=== PATIENT | male | born 1955 | race Caucasian/White ===

== ENCOUNTER 2021-08-21 05:20 | Emergency (ER) | payer OTHER | END 2021-08-21 08:18 | disposition home or self-care (01) | LOC: ER1 05:20 | DX: U07.1 COVID-19 (principal); K21.9 Gastro-esophageal reflux disease without esophagitis; E78.5 Hyperlipidemia, unspecified | CPT/HCPCS: 99283 ==

== ENCOUNTER 2022-04-18 16:51 | Emergency (ER) | payer OTHER ==
[2022-04-18 18:12] LABS: HEMOGLOBIN 18.7 gm/dl (14.0-17.5); RED BLOOD COUNT 5.89 M/UL (4.20-5.50); WHITE BLOOD COUNT 8.3 K/UL (4.5-11.0)
== END 2022-04-18 19:28 | disposition home or self-care (01) ==
LOC: ER1 16:51
PROVIDERS: Preventive Medicine Occupational Medicine
DX: I47.1 Supraventricular tachycardia (principal)
CPT/HCPCS: 71045; 80053; 82550; 82553; 84484; 85025; 93005; 99285

== ENCOUNTER → 2022-05-06 | Outpatient (CLI) | payer OTHER | LOC: ECHO 09:45 | DX: R00.2 Palpitations (principal); R00.0 Tachycardia, unspecified; I07.1 Rheumatic tricuspid insufficiency | CPT/HCPCS: ECHO; 93306 ==

== ENCOUNTER → 2022-05-14 | Outpatient (CLI) | payer OTHER ==
[~2022-05-14] MED LIST: CITALOPRAM HBR20 MG PO; METHIMAZOLE5 MG PO; MYRBETRIQ25 MG PO; OMEPRAZOLE40 MG PO; TRAZODONE HCL150 MG PO; ZOCOR 40 MG TAB40 MG PO
== END | disposition home or self-care (01) ==
LOC: CATH 09:55
DX: I47.1 Supraventricular tachycardia (principal); E78.5 Hyperlipidemia, unspecified; E05.90 Thyrotoxicosis, unspecified without thyrotoxic crisis or storm; K21.9 Gastro-esophageal reflux disease without esophagitis; F17.220 Nicotine dependence, chewing tobacco, uncomplicated; F32.A Depression, unspecified; Z79.899 Other long term (current) drug therapy
CPT/HCPCS: 93609; 93620; 93621; 93623; 99152; 99153; C1730; C1733; C1766; J1644; J2250; J3010; J7040; J7050